=== PATIENT | male | born 2000 | race Caucasian/White ===

== ENCOUNTER 2020-11-27 21:15 | Emergency (ER) | payer OTHER ==
[2020-11-27 21:26] VITALS: BP 149/85
--- NOTE | 2020-11-27 22:03 | ED Physician Documentation ---
History of Present Illness - Stated complaint Stated Complaint: R EAR PX - Chief complaint Chief Complaint: Heent - Additonal information Additional information: 20-year old male presents emergency department for evaluation of 3 days of right ear pain and muffled hearing. He thinks that there has been some moist drainage but not much. He does not use Q-tips in his ears. Denies concerns with the left ear. No fevers, cough congestion sore throat or runny nose. Review of Systems Constitutional: reports: Reviewed and negative Eyes: reports: Reviewed and negative Ears: reports: Loss of hearing, Drainage/discharge, Tinnitus/ringing Nose: reports: Reviewed and negative Throat: reports: Reviewed and negative Cardiac: reports: Reviewed and negative Respiratory: reports: Reviewed and negative GI: reports: Reviewed and negative : reports: Reviewed and negative Skin: reports: Reviewed and negative PD PAST MEDICAL HISTORY - Past Medical History Past Medical History: No - Past Surgical History Past Surgical History: No - Present Medications Home Medications: Ambulatory Orders Medication Instructions Recorded Confirmed Ofloxacin [Ocuflox] 5 ml OP BID #1 bottle 11/27/20 - Allergies Allergies/Adverse Reactions: Allergies Allergy/AdvReac Type Severity Reaction Status Date / Time No Known Drug Allergies Allergy Verified 11/27/20 21:26 - Social History Does the pt smoke?: No Smoking Status: Never smoker Does the pt drink ETOH?: No Does the pt have substance abuse?: No - Immunizations Immunizations are current?: Yes - POLST Patient has POLST: No PD ED PE EXPANDED - General General: Alert, No acute distress - HEENT HEENT: No: Ears normal (Bilateral cerumen impaction in both EACs. Unable to visualize TM.) Results - Vitals Vitals: Vital Signs - 24 hr 11/27/20 21:21 Temperature 36.7 C Heart Rate 78 Respiratory 14 Rate Blood Pressure 149/85 H O2 Saturation 99 Oxygen O2 Source Room air Procedures - General procedure General procedure: Warm water was used to gently flush both ear canals with a large amount of hard cerumen and debris easily flushed from both canals. On reevaluation both tympanic membranes are intact however the ear canals bilaterally are mildly erythematous. PD MEDICAL DECISION MAKING - ED course Complexity details: d/w patient ED course: 20-year-old male presents emergency department for loss of hearing and concerned that he may have drainage from the right ear. On exam he had 100% cerumen impaction bilaterally. I was able to gently flush both ears with warm water at the bedside removing 90% of the debris in both ear canals. Post procedure visualized tympanic membranes are intact. The ear canals bilaterally are now mildly erythematous. He will be placed on ofloxacin eardrops and recommend close follow-up with primary care provider. Emergent return precautions discussed for concerns of otitis externa AOM and malignancy Departure - Departure Disposition: 01 Home, Self Care Clinical Impression: Impacted cerumen of both ears Condition: Stable Record reviewed to determine appropriate education?: Yes Instructions: Earwax Impacted Prescriptions: Ofloxacin [Ocuflox] 5 ml OP BID #1 bottle Comments: Renard you are seen in the emergency department today for concerns of muffled hearing in your right ear. As we discussed you had 100% cerumen impaction in both your ears. We used warm water to gently flush both of your ear canals. However the ear canals are now mildly inflamed. Please fill the prescription for the ofloxacin antibiotic drops tomorrow and begin taking as directed. Please place 5 drops in each ear canal twice a day for the next week. Return to the emergency department if you develop worsening symptoms, have ear swelling, fevers cannot open your jaw or lose hearing again in your ears.
== END 2020-11-27 22:21 | disposition home or self-care (01) ==
LOC: ED 21:15
DX: H61.23 Impacted cerumen, bilateral (principal)
CPT/HCPCS: 99282; 99283

== ENCOUNTER 2020-12-07 22:38 | Emergency (ER) | payer OTHER ==
--- NOTE | 2020-12-07 23:22 | ED Physician Documentation ---
PD HPI DYSPNEA - Stated complaint Stated Complaint: SOA/COUGH - Chief complaint Chief Complaint: Resp - History obtained from History obtained from: Patient - History of Present Illness Timing - onset: How many days ago (3-4) Timing - duration: Days Timing - details: Gradual onset Improved by: Rest Worsened by: Exertion, Coughing Associated symptoms: Cough. No: Fever - Additional information Additional information: patient complains of a few days of allergies kicking up. Patient is Covid vaccinated. He was seen in the outpatient setting at [facility] on Wednesday and again on Wednesday he was diagnosed with conjunctivitis was prescribed both eye drops and ointment, as well as Flonase. He also complains of increasing nonproductive cough, intermittent wheezing and shortness of breath. He called [facility] today and was prescribed albuterol inhaler, but he could not reach the pharmacy in time to pick it up before they closed Review of Systems Constitutional: reports: Reviewed and negative Eyes: reports: Discharge, Irritation Ears: denies: Ear pain Nose: reports: Rhinorrhea / runny nose, Congestion Throat: denies: Sore throat Respiratory: reports: Dyspnea, Cough, Wheezing PD PAST MEDICAL HISTORY - Past Medical History Past Medical History: Yes Respiratory: Asthma - Past Surgical History Past Surgical History: No - Present Medications Home Medications: Ambulatory Orders Medication Instructions Recorded Confirmed Ofloxacin [Ocuflox] 5 ml OP BID #1 bottle 11/27/20 12/07/20 predniSONE [Deltasone] 40 mg PO DAILY 4 Days #8 tablet 12/08/20 - Allergies Allergies/Adverse Reactions: Allergies Allergy/AdvReac Type Severity Reaction Status Date / Time No Known Drug Allergies Allergy Verified 12/07/20 22:49 - Social History Does the pt smoke?: No Smoking Status: Never smoker Does the pt drink ETOH?: No Does the pt have substance abuse?: No - Immunizations Immunizations are current?: Yes - POLST Patient has POLST: No PD ED PE NORMAL - Vitals Vital signs reviewed: Yes - General General: Alert and oriented X 3, No acute distress, Well developed/nourished - HEENT HEENT: PERRL, EOMI, Pharynx benign - Neck Neck: Supple, no meningeal sign - Cardiac Cardiac: RRR, No murmur - Respiratory Respiratory: No respiratory distress, Clear bilaterally PD ED PE EXPANDED - Eyes Eyes: Injected conj/sclera Results - Vitals Vitals: Oxygen O2 Source Room air PD MEDICAL DECISION MAKING - ED course Complexity details: considered differential, d/w patient ED course: patient describes symptoms consistent with seasonal allergies, which he has had before. Hes already taking Flonase, antibiotic drops and ointment for his conjunctivitis, and has been using antihistamines. His lungs are completely clear to auscultation bilaterally on exam. He has an occasional bronchospasm to cough during the exam. He is administer to do an ab and given 10 mg PO Decadron, and reevaluation, he says he is greatly improved. He is provide a prescription for prednisone, and will bead picker the prescription for the albuterol inhaler in the morning. Departure - Departure Disposition: 01 Home, Self Care Clinical Impression: Bronchospasm, acute Condition: Good Instructions: ED Reactive Airway Disease Prescriptions: predniSONE [Deltasone] 40 mg PO DAILY 4 Days #8 tablet Forms: Activity restrictions Discharge Date/Time: 12/08/20 01:18
[2020-12-07] MEDS ORDERED: IPRATROPIUM/ALBUTEROL 3 ML NEB INH STA (23:47)
[2020-12-07] MEDS ORDERED: CHERRY SYRUP 10 ML UDC PO ONE (23:47)
[2020-12-07] MEDS ORDERED: DEXAMETHASONE 10 MG/ML VIAL PO STA (23:47)
[2020-12-08 01:18] VITALS: BP 159/99
== END 2020-12-08 01:18 | disposition home or self-care (01) ==
LOC: ED 22:38
DX: J98.01 Acute bronchospasm (principal); H10.9 Unspecified conjunctivitis
CPT/HCPCS: 94640; 99283; 99284; A9270